=== PATIENT | female | born 1940 | race Caucasian/White ===

== ENCOUNTER 2017-06-18 14:52 | Emergency (ER) | END 2017-06-18 18:26 | disposition home or self-care (01) ==

== ENCOUNTER 2017-07-04 01:31 | Inpatient (IN) | END 2017-07-09 20:30 | disposition home health service (06) | DRG 552 ==

== ENCOUNTER 2018-09-27 20:30 | Emergency (ER) | payer OTHER ==
[~2018-09-27] VITALS: Ht 152.4 cm; Wt 65.4 kg
[~2018-09-27 20:30] MED LIST: BISA5TAB6 PO; DOCU250C58 PO; LISI-471 PO; METF500T PO; OXYC-279 PO; POLY17PO6 PO
[2018-09-27 20:36] VITALS: Ht 152.4 cm; Wt 65.4 kg
--- NOTE | 2018-09-27 21:03 | ERD ---
ER Documentation Chief Complaint Chief Complaint S/P FALLS HPI The patient is a 78-year-old female, presenting to the ER because he slid off her bed and fell on the floor today and yesterday. She denies syncope, near syncope, neck pain, chest pain, dyspnea, abdominal pain, vomiting, dysuria, diarrhea, hip pain. She was seen in the ER on July 04, 2017 when she had fractures of T11 and L2. She denies smoking/drinking Medical history: Diabetes mellitus, hypertension Past surgical history: None ROS All systems reviewed and are negative except as per history of present illness. Medications Home Meds Reported Medications Carvedilol* (Carvedilol*) 12.5 Mg Tablet, 12.5 MG PO BID, #60 TAB 09/27/18 Calcium Carbonate/Vitamin D3 (Oyster Shell Calcium +D Tablet) 1 Each Tablet, 1 EACH PO DAILY, TAB 09/27/18 Alendronate Sodium* (Fosamax*) 70 Mg Tablet, 70 MG PO Q7D, #4 TAB 09/27/18 Gabapentin* (Gabapentin*) 300 Mg Capsule, 300 MG PO QHS, #60 CAP 09/27/18 Atorvastatin Calcium (Atorvastatin Calcium) 10 Mg Tablet, 10 MG PO QHS, #30 TAB 09/27/18 Sitagliptin* (Januvia*) 100 Mg Tablet, 100 MG PO DAILY, #30 TAB 09/27/18 Acarbose* (Precose*) 50 Mg Tablet, 50 MG PO TIDM A, TAB 09/27/18 Duloxetine Hcl* (Duloxetine Hcl*) 20 Mg Capsule.dr, 20 MG PO DAILY, #30 CAP 09/27/18 Lisinopril* (Lisinopril*) 10 Mg Tablet, 10 MG PO DAILY, #30 TAB 09/27/18 Tramadol Hcl* (Ultram*) 50 Mg Tablet, 50 MG PO BID PRN for PAIN, TAB 09/27/18 Discontinued Reported Medications Alendronate Sodium* (Fosamax*) 70 Mg Tablet, 70 MG PO Q7D, #4 TAB 09/27/18 Discontinued Scripts Bisacodyl* (Bisacodyl*) 5 Mg Tablet.dr, 10 MG PO DAILY PRN for CONSTIPATION for 30 Days, #30 TAB Prov:BI OMER MD 07/09/17 Polyethylene Glycol* (Miralax*) 17 Gm Powd.pack, 8.5 GM PO DAILY for 30 Days, #1 EA Prov:BI OMER MD 07/09/17 Docusate Sodium* (Colace*) 250 Mg Capsule, 250 MG PO DAILY for 30 Days, #30 CAP Prov:BI OMER MD 07/09/17 Metformin Hcl (Glucophage) 500 Mg Tablet, 500 MG PO BID WITH MEALS for 30 Days, #60 TAB Prov:BI OMER MD 07/09/17 Lisinopril* (Lisinopril*) 20 Mg Tablet, 20 MG PO DAILY for 14 Days, #14 TAB Prov:BI OMER MD 07/09/17 Oxycodone HCl/Acetaminophen (Percocet 5-325 mg Tablet) 1 Each Tablet, 1 EACH PO TID for PAIN AND/OR INFLAMMATION, #12 TAB Prov:PATRICK NI MD 06/18/17 Allergies Allergies: Coded Allergies: No Known Allergy (Unverified , 09/27/18) PMhx/Soc History of Surgery: Yes Anesthesia Reaction: No Hx Neurological Disorder: No Hx Respiratory Disorders: No Hx Cardiac Disorders: Yes Hx Psychiatric Problems: No Hx Miscellaneous Medical Probl: Yes (See EMR for detail. ) Hx Alcohol Use: No Hx Substance Use: No Hx Tobacco Use: No Physical Exam Vitals Vital Signs Date Temp Pulse Resp B/P (MAP) Pulse Ox O2 O2 Flow FiO2 Time Delivery Rate 09/27/18 97.9 72 17 147/66 98 Room Air 21:30 (93) 09/27/18 99.4 81 17 122/57 98 20:36 (78) Physical Exam Const: No acute distress.mild dehydrated Head: Atraumatic. Eyes: Normal Conjunctiva. ENT: Normal External Ears, Nose and Mouth. Neck: Full range of motion. No meningismus. Resp: Clear to auscultation bilaterally. Cardio: Regular rate and rhythm. Abd: Soft, non distended, normal bowel sounds, non tender. Skin: No petechiae or rashes. Back: No midline or flank tenderness. Ext: No cyanosis, or edema. Neur: Awake and alert. No focal deficit Psych: Normal Mood and Affect. Result Diagram: 09/27/18215409/27/182154 Results 24 hrs Laboratory Tests Test 09/27/18 21:55 White Blood Count 9.4 10^3/ul Red Blood Count 4.48 10^6/ul Hemoglobin 12.5 g/dl Hematocrit 37.3 % Mean Corpuscular Volume 83.3 fl Mean Corpuscular Hemoglobin 27.9 pg Mean Corpuscular Hemoglobin Concent 33.5 g/dl Red Cell Distribution Width 13.3 % Platelet Count 266 10^3/UL Mean Platelet Volume 10.1 fl Immature Granulocytes % 0.500 % Neutrophils % 68.7 % Lymphocytes % 19.6 % Monocytes % 9.6 % Eosinophils % 1.1 % Basophils % 0.5 % Nucleated Red Blood Cells % 0.0 /100WBC Immature Granulocytes # 0.050 10^3/ul Neutrophils # 6.5 10^3/ul Lymphocytes # 1.8 10^3/ul Monocytes # 0.9 10^3/ul Eosinophils # 0.1 10^3/ul Basophils # 0.1 10^3/ul Nucleated Red Blood Cells # 0.0 10^3/ul Sodium Level 129 mmol/L Potassium Level 3.8 mmol/L Chloride Level 93 mmol/L Carbon Dioxide Level 26 mmol/L Anion Gap 10 Blood Urea Nitrogen 28 mg/dl Creatinine 0.72 mg/dl Est Glomerular Filtrat Rate mL/min mL/min Glucose Level 134 mg/dl Calcium Level 10.4 mg/dl Creatine Kinase 548 IU/L Current Medications Medications Dose Sig/Sheila Start Time Status Last (Trade) Ordered Route PRN Stop Time Admin Dose Reason Admin Sodium 500 ml @ Q1H ONCE 09/27/18 DC 09/28/18 Chloride 500 mls/hr IV 23:00 00:00 09/27/18 23:59 Procedures/MDM EKG: Read by emergency physician Rate/Rhythm: Normal Sinus Rhythm 80 beats/min QRS, ST, T-waves: No ST elevation, no T inversion, 1st AVB, LAD, LVH Impression: Abnormal EKG MEDICAL MAKING DECISION: The patient is a 78-year-old female, presenting with acute myalgia, acute dehydration. She was treated with 500 mm normal saline for acute dehydration with good response, is above outpatient follow-up The differential diagnoses considered include but are not limited to dehydration, electrolyte imbalance, contusion, sprain, fracture Departure Diagnosis: Primary Impression: Fall with no significant injury Additional Impression: Dehydration Condition: Good Comments I discussed the findings with the patient. I advised the patient to follow-up with the primary physician in about 2-3 days, sooner if needed and return if any concern. Disclaimer: Inadvertent spelling and grammatical errors are likely due to EHR/dictation software use and do not reflect on the overall quality of patient care. Also, please note that the electronic time recorded on this note does not necessarily reflect the actual time of the patient encounter. PAUL MEDEIROS MD Sep 27, 2018 21:03
[2018-09-27] MEDS ORDERED: ALEN70TA5 PO ×2 (22:36→22:43)
[2018-09-27] MEDS ORDERED: SITA100T11 PO (22:43)
[2018-09-27] MEDS ORDERED: DULO20CA17 PO (22:43)
[2018-09-27] MEDS ORDERED: TRAM50TA PO (22:43)
[2018-09-27] MEDS ORDERED: ACAR50TA PO (22:43)
[2018-09-27] MEDS ORDERED: GABA300C16 PO (22:43)
[2018-09-27] MEDS ORDERED: ATOR10TA65 PO (22:43)
[2018-09-27] MEDS ORDERED: LISI10TA2 PO (22:43)
[2018-09-27] MEDS ORDERED: CALC-133 PO (22:43)
[2018-09-27] MEDS ORDERED: CARV12.579 PO (22:43)
[2018-09-27] MEDS ORDERED: SOD CHLORIDE 0.9% 500 ML IV ONE (23:00)
[2018-09-28 00:40] VITALS: BP 160/70; PULSE 85; RESP 17
== END 2018-09-28 00:52 | disposition home or self-care (01) ==
LOC: E/R 20:30
DX: E86.0 Dehydration (principal); I10 Essential (primary) hypertension; E11.9 Type 2 diabetes mellitus without complications; Z79.84 Long term (current) use of oral hypoglycemic drugs
CPT/HCPCS: 80048; 82550; 85025; 93005; J7040; 36415